=== PATIENT | male | born 1975 | race Caucasian/White ===

== ENCOUNTER 2018-02-04 08:03 | Emergency (ER) | payer OTHER ==
[2018-02-04 08:11] VITALS: BP 141/82; PULSE 63; RESP 16; TEMP 98.2
[2018-02-04] MEDS ORDERED: LIDOCAINE 1% INJ 10MG/ML (20 ML MDV) SQ STA (08:13)
[2018-02-04] MEDS ORDERED: DIPH,PERTUS(ACELL)TETVAC-LF 0.5 ML VIAL IM ONE (08:14)
--- NOTE | 2018-02-04 08:42 | ED ---
General Adult HPI - General Chief complaint: Wound/Laceration Stated complaint: arm lac-[facility] Time Seen by Provider: 02/04/18 08:11 Source: patient, RN notes reviewed Mode of arrival: ambulatory Limitations: no limitations - History of Present Illness Initial comments: Patient 42-year-old male presented to the emergency room today with a chief complaint of laceration to the back of the right forearm. He states he was at work and there was a sharp piece of duct work exposures causes laceration. He states unsure of his tetanus status. He denies any other complaints or symptoms. - Related Data Allergies Allergy/AdvReac Type Severity Reaction Status Date / Time hydrocodone Allergy Rash/Hives Verified 02/04/18 08:08 Review of Systems ROS Statement: Those systems with pertinent positive or pertinent negative responses have been documented in the HPI. ROS Other: All systems not noted in ROS Statement are negative. Past Medical History Past Medical History: No Reported History History of Any Multi-Drug Resistant Organisms: None Reported Past Surgical History: Orthopedic Surgery Additional Past Surgical History / Comment(s): L ankle Past Psychological History: No Psychological Hx Reported Smoking Status: Never smoker Past Alcohol Use History: None Reported Past Drug Use History: None Reported General Exam - General Exam Comments Initial Comments: General: The patient is awake and alert, in no distress, and does not appear acutely ill. Neck: The neck is supple, there is no tenderness or JVD. Cardiovascular: There is a regular rate and rhythm. No murmur, rub or gallop is appreciated. Respiratory: Lungs are clear to auscultation, respirations are non-labored, breath sounds are equal. No wheezes, stridor, rales, or rhonchi. Musculoskeletal: Full range motion. Sensation intact. Pulses 2+. Strength 5/ 5. Neurological: A&O x 3. CN II-XII intact, There are no obvious motor or sensory deficits. Coordination appears grossly intact. Speech is normal. Skin: 4 cm V-shaped laceration to the posterior aspect of the right forearm. Psychiatric: Normal mood and affect. Limitations: no limitations Course Vital Signs 02/04/18 08:08 Temperature 98.2 F Pulse Rate 63 Respiratory 16 Rate Blood Pressure 141/82 O2 Sat by Pulse 100 Oximetry Procedures - Procedures Initial comment: 4 cm V-shaped laceration to the right forearm. No active bleeding. The skin was anesthetized with 1% lidocaine. The laceration was then cleansed with and irrigated with normal saline. The wound was inspected, and there was no evidence of injury to deep structures. No foreign body was noted in the wound. A total of 11 skin sutures were placed utilizing 4-0 nylon. Disposition Clinical Impression: Laceration Disposition: HOME SELF-CARE Condition: Good Instructions: Laceration (ED) Additional Instructions: Please return to the emergency room in 8-10 days to have sutures removed. Please watch for any signs of infection which may include increased pain, swelling, redness, fever or chills. Please return to emergency room for any signs of infection do occur. Please use clean soap and water over the area to prevent scabbing over your stitches. Please leave wound covered for the first 24-48 hours and then leave wound open to air. Please return to the emergency room for any other concerns. Is patient prescribed a controlled substance at d/c from ED?: No Referrals: None,Stated [Primary Care Provider] - 1-2 days Time of Disposition: 08:42
== END 2018-02-04 08:51 | disposition home or self-care (01) ==
LOC: EC 08:03
DX: S51.811A Laceration without foreign body of right forearm, initial encounter (principal); Z23 Encounter for immunization; Z98.890 Other specified postprocedural states; Z88.5 Allergy status to narcotic agent; W26.8XXA Contact with other sharp object(s), not elsewhere classified, initial encounter; Y92.69 Other specified industrial and construction area as the place of occurrence of the external cause; Y99.0 Civilian activity done for income or pay
CPT/HCPCS: 90715; 99282; 12002; 90471; J2001

== ENCOUNTER 2018-02-12 09:09 | Emergency (ER) | payer OTHER ==
[2018-02-12 09:14] VITALS: BP 124/85; PULSE 68; RESP 20; TEMP 98.5
--- NOTE | 2018-02-12 09:21 | ED ---
Wound/Laceration HPI - General Chief Complaint: Wound/Laceration Stated Complaint: [facility] - INFECTED LACERATION / SUTURES Time Seen by Provider: 02/12/18 09:15 Source: patient, RN notes reviewed Mode of arrival: ambulatory Limitations: no limitations - History of Present Illness Initial Comments: 42-year-old male presented for recheck of his sutures to his right forearm. Patient states that he had sutures placed approximately one week ago. Patient states in the last 1-2 days he's noticed some redness and slight drainage. He states there is slight increased pain. Patient states she's been trying to keep it clean but he states he does occasionally work and the dirty environment. Patient has full range of motion no paresthesias. - Related Data Home Medications Medication Instructions Recorded Confirmed Cetirizine HCl [Zyrtec] 10 mg PO DAILY PRN 02/04/18 02/04/18 Omeprazole 20 mg PO DAILY 02/04/18 02/04/18 Previous Rx's Medication Instructions Recorded Cephalexin [Keflex] 500 mg PO Q6HR #28 cap 02/12/18 Allergies Allergy/AdvReac Type Severity Reaction Status Date / Time hydrocodone Allergy Rash/Hives Verified 02/12/18 09:14 Review of Systems ROS Statement: Those systems with pertinent positive or pertinent negative responses have been documented in the HPI. ROS Other: All systems not noted in ROS Statement are negative. Past Medical History Past Medical History: No Reported History History of Any Multi-Drug Resistant Organisms: None Reported Past Surgical History: Orthopedic Surgery Additional Past Surgical History / Comment(s): L ankle Past Psychological History: No Psychological Hx Reported Smoking Status: Never smoker Past Alcohol Use History: None Reported Past Drug Use History: None Reported General Exam Limitations: no limitations General appearance: alert, in no apparent distress Respiratory exam: Present: normal lung sounds bilaterally. Absent: respiratory distress, wheezes, rales, rhonchi, stridor Cardiovascular Exam: Present: regular rate, normal rhythm, normal heart sounds. Absent: systolic murmur, diastolic murmur, rubs, gallop, clicks Extremities exam: Present: other (Right forearm there is a V-shaped laceration with a slight erythema along the suture line no obvious drainage at this time. Patient has full range of motion neurovascular intact) Course Vital Signs 02/12/18 09:13 Temperature 98.5 F Pulse Rate 68 Respiratory 20 Rate Blood Pressure 124/85 O2 Sat by Pulse 98 Oximetry Medical Decision Making - Medical Decision Making 42-year-old male presented for recheck of his sutures. He does have an infected area of the sutures. Patient was placed on Keflex we discussed return parameters. Disposition Clinical Impression: Infected laceration of skin Disposition: HOME SELF-CARE Condition: Stable Instructions: Cellulitis (ED) Additional Instructions: Please return to the Emergency Department if symptoms worsen or any other concerns. Prescriptions: Cephalexin [Keflex] 500 mg PO Q6HR #28 cap Is patient prescribed a controlled substance at d/c from ED?: No Referrals: None,Stated [Primary Care Provider] - 1-2 days Time of Disposition: 09:21
== END 2018-02-12 09:30 | disposition home or self-care (01) ==
LOC: EC 09:09
DX: S51.811D Laceration without foreign body of right forearm, subsequent encounter (principal); L08.9 Local infection of the skin and subcutaneous tissue, unspecified; Y99.0 Civilian activity done for income or pay; Z79.899 Other long term (current) drug therapy; Z88.5 Allergy status to narcotic agent
CPT/HCPCS: 99282